=== PATIENT | female | born 1975 | race African-American/Black ===

== ENCOUNTER 2020-11-09 14:20 | Outpatient (CLI) | payer BC, SELFPAY ==
--- NOTE | ~2020-11-09 | XR_ITS ---
XR foot LT min 3V DATE: 11/09/2020 15:03 INDICATION: Anterior dorsal foot pain especially with weightbearing TECHNIQUE: 4 views COMPARISON: 06/06/2017 left foot FINDINGS: Moderate posterior and plantar calcaneal enthesopathy without erosive change or periostitis . There is osteoarthritic change at the tarsal and tarsometatarsal first metatarsophalangeal joints. No fracture, dislocation, periosteal reaction or bone destruction. No erosive change. IMPRESSION: Polyarticular osteoarthritis Plantar and posterior calcaneal spurring Reviewed, dictated and finalized at location A.
[2020-11-09 15:15] LABS: Hematocrit 39.3 % (37.0-47.0); Hemoglobin 12.3 g/dL (12.0-15.0); Mean Corpuscular HGB Conc 31.3 g/dl (32-36); Mean Corpuscular Hemoglobin 28.1 pg (26-34); Mean Corpuscular Volume 89.7 fl (80-100); Platelet Count Result 408 k/mm3 (150-375); Red Blood Count 4.38 M/mm3 (4.2-5.4); Red Cell Distribution Width 14.2 % (11.5-14.5); White Blood Count 11.4 K/mm3 (4.5-10.0)
[2020-11-09 15:25] LABS: Add Urine Microscopic? YES; Appearance Urine Cloudy (Clear); Bilirubin Urine Negative (Negative); Blood Urine Negative (Negative); Color Urine Yellow (Yellow); Glucose Urine UA Negative (Negative); Ketones Urine Negative (Negative); Leukocyte Esterase Ur 1+ LEU/UL (NEGATIVE); Mucus Urine Rare /lpf; Nitrate Urine Negative (Negative); Protein Urine 1+ mg/dL (Negative); Specific Grav Ur 1.023 (1.001-1.035); Squamous Epithelial Cell Urine Many /hpf (Few); Transitional Epi Cells Urine Rare /hpf (None Seen)
[2020-11-09 15:26] LABS: Alanine Aminotransferase 25 U/L (4-35); Albumin Level 4.4 g/dL (3.5-5.1); Alkaline Phosphatase 74 U/L (38-126); Anion Gap 3 mmol/L (8-16); Aspartate Amino Transferase 34 U/L (14-36); Bilirubin,Total 0.3 mg/dL (0.2-1.3); Blood Urea Nitrogen 16 mg/dL (7-17); Calcium 9.1 mg/dL (8.4-10.2); Carbon Dioxide 32 mmol/L (22-30); Chloride 105 mmol/L (98-107); Cholesterol 161 mg/dL (0-200); Estimated Glomerular Filt Rate > 60; Glucose 88 mg/dL (65-105); HDL Direct 52 mg/dL; Sodium 140 mmol/L (137-145); Triglycerides 47 mg/dL (<150)
[2020-11-09 15:37] LABS: LDL Cholesterol Direct 89 mg/dL
[2020-11-09 15:54] LABS: Thyroid Stimulating Hormone 0.444 uIU/mL (0.465-4.680)
[2020-11-09 18:05] LABS: MALB Creatinine Ratio 9.9 mg/g (0-30); Microalbumin Urine Random 14.7 mg/L (0-16.7)
[2020-11-09 18:29] LABS: Hemoglobin A1C 5.8 % (<5.7)
[2020-11-09 19:14] LABS: Free T4 Free Thyroxine 1.21 ng/mL (0.78-2.19)
[2020-11-09 19:36] LABS: Vitamin D 25 Hydroxy < 12.8 ng/mL
== END 2020-11-09 14:21 | disposition home or self-care (01) ==
PROVIDERS: PCP Emergency Medicine; Visit Provider Emergency Medicine
DX: F41.9 Anxiety disorder, unspecified (principal); J45.909 Unspecified asthma, uncomplicated; M25.572 Pain in left ankle and joints of left foot; Z00.00 Encounter for general adult medical examination without abnormal findings; I10 Essential (primary) hypertension
CPT/HCPCS: 36415; 73630; 80053; 80061; 81001; 82043; 82306; 83036; 84439; 84443; 85027; 87086

== ENCOUNTER → 2022-03-18 10:08 | Outpatient (CLI) | payer BC, SELFPAY ==
--- NOTE | ~2022-03-18 | XR_ITS ---
EXAMINATION: XR chest 2V DATE: 03/18/2022 10:27 INDICATION: Shortness of breath and wheezing TECHNIQUE: PA and lateral views of the chest are obtained. COMPARISON: 04/12/2017 FINDINGS: The lungs are free of acute opacities. No pleural effusion or pneumothorax. The cardiomedia stinal silhouette is normal. There is moderate thoracic spondylosis. IMPRESSION: 1. No acute cardiopulmonary abnormality. Reviewed, dictated and finalized at location A.
== END ==
PROVIDERS: PCP Emergency Medicine; Visit Provider Emergency Medicine
DX: R06.02 Shortness of breath (principal); R06.2 Wheezing
CPT/HCPCS: 71046